=== PATIENT | male | born 1980 | race Caucasian/White ===

== ENCOUNTER → 2017-01-14 | Outpatient (CLI) | payer BC ==
--- NOTE | 2017-01-15 08:36 | CT ---
EXAMINATION TYPE: CT abdomen pelvis wo/w con DATE OF EXAM: 01/14/2017 6:02 PM COMPARISON: Prior CT abdomen pelvis 2015 HISTORY: F/U after radiation for testicular CA. CT DLP: 2219 mGycm Automated exposure control for dose reduction was used. TECHNIQUE: Helical acquisition of images was performed from the lung bases through the pelvis. CONTRAST: Performed with Oral Contrast and without and with IV Contrast, patient injected with 100 mL of Omnipa que 300. FINDINGS: LUNG BASES: No significant abnormality is appreciated. LIVER/GB: The liver shows low attenuation possibly due to fatty infiltration, the gallbladder is unre markable. PANCREAS: No significant abnormality is seen. SPLEEN: No significant abnormality is seen. ADRENALS: No significant abnormality is seen. KIDNEYS: Punctate nonobstructive calculus is present in the anterior calyx of the mid pole the right kidney, there is no hydronephrosis bilaterally, no ureteral calculus RETROPERITONEAL ADENOPATHY: Previous identified retroperitoneal node on the left. Aortic bifurcation adjacent to the aorta is no longer seen. REPRODUCTIVE ORGANS: Prostate shows some associated calcifications. URINARY BLADDER: No significant abnormality is seen. PELVIC ADENOPATHY: None visualized. OSSEOUS STRUCTURES: No significant abnormality is seen. BOWEL: No significant abnormality is seen. OTHER: Aorta shows normal caliber. IMPRESSION: RETROPERITONEAL NODE TO THE LEFT OF MIDLINE NEAR THE LEVEL OF THE AORTIC BIFURCATION ON THE LEFT IS N O LONGER EVIDENT. NO OTHER SIGNIFICANT INTERVAL CHANGE.
== END | disposition home or self-care (01) ==
LOC: RADCTMAIN 17:35
PROVIDERS: ATTEND Radiology Diagnostic Radiology
DX: Z85.47 Personal history of malignant neoplasm of testis (principal)
CPT/HCPCS: 74178; Q9967

== ENCOUNTER → 2017-03-10 | Outpatient (CLI) | payer BC ==
--- NOTE | 2017-03-10 18:34 | XR ---
History pain. Comparison none. Technique 3 views. FINDINGS: There is mild spurring at the third MP joint. The metacarpals are intact. There is no subluxation. Th ere are no erosions. CONCLUSION: No fracture. No sign of inflammatory arthritis. 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
== END | disposition home or self-care (01) ==
LOC: RADXRMAIN 17:45
PROVIDERS: ATTEND Family Medicine
DX: M19.041 Primary osteoarthritis, right hand (principal)

== ENCOUNTER → 2017-08-01 | Outpatient (CLI) | payer BC ==
--- NOTE | 2017-08-01 10:34 | CT ---
EXAMINATION TYPE: CT abdomen pelvis wo/w con DATE OF EXAM: 08/01/2017 COMPARISON: 01/14/2017, 03/25/2016 HISTORY: 37-year-old male Follow up to testicular CA, history of left testicle removed TECHNIQUE: Contiguous axial scanning of the abdomen and pelvis before and after administration of 100 ml Omnipaque 300 IV contrast. Delayed images through the kidneys and coronal/sagittal reconstructio ns performed. CT DLP: 1307 mGycm Automated exposure control for dose reduction was used. FINDINGS: The heart is normal size without pericardial effusion. Mild strandy dependent atelectasis posterior l komal bases. No pleural effusion. A couple subcentimeter hypodensities in the central liver, axial image 17 and 18 are unchanged, likel y cysts. Portal venous system is patent. No biliary ductal dilatation. Adrenal glands, gallbladder, spleen, and pancreas appear within normal limits. 3 mm nonobstructive right renal calculus redemonstrated. A couple subcentimeter hypodensities in the left kidney are unchanged and too small for accurate CT characterization, likely cysts. Scattered nonenlarged mesenteric lymph nodes are unchanged.. Small left common iliac chain lymph node s are unchanged. The previously seen left para-aortic lymphadenopathy seen on 03/25/2016 at the level o f the aortic bifurcation remains resolved. Normal appendix. No significant stool burden. Oral contrast progressed to the distal sigmoid. No mason colonic inflammatory change. Bladder is urine distended. Prostate gland measures 4.7 cm wide with some central gas calcifications. No abnormal fluid collection in the pelvis and no pelvic lymphadenopathy. Bones: No osseous destructive process. Stable bone islands within the right ischium. IMPRESSION: 1. NO NEW OR RECURRENT LYMPHADENOPATHY TO SUGGEST METASTATIC DISEASE. 2. NONOBSTRUCTIVE 3 MM RIGHT RENAL CALCULUS.
== END | disposition home or self-care (01) ==
LOC: RADCTMAIN 09:19
PROVIDERS: ATTEND Radiology Diagnostic Radiology
DX: C62.90 Malignant neoplasm of unspecified testis, unspecified whether descended or undescended (principal); N20.0 Calculus of kidney
CPT/HCPCS: 74178; Q9967

== ENCOUNTER → 2020-08-09 | Outpatient (CLI) | payer BC ==
--- NOTE | 2020-08-09 15:49 | US ---
EXAMINATION TYPE: US extremity nonvasculr ltd RT DATE OF EXAM: 08/09/2020 COMPARISON: NONE CLINICAL HISTORY: M25.561 Pain in rt knee. Pain behind right knee since spring Anechoic area right popliteal fossa = 2.9 x 0.5 x 1.3cm. No evidence of skin thickening. No subcutane ous edema. There is patent, or Doppler flow of the right popliteal vein and artery. IMPRESSION: 2.9 x 0.5 x 1.3 cm popliteal cyst.
== END | disposition home or self-care (01) ==
LOC: RADUSWWP 12:18
PROVIDERS: ATTEND Family Medicine
DX: M71.21 Synovial cyst of popliteal space [Baker], right knee (principal)

== ENCOUNTER → 2020-09-19 | Outpatient (CLI) | payer BC ==
--- NOTE | 2020-09-19 08:18 | XR ---
EXAMINATION TYPE: XR chest 2V DATE OF EXAM: 09/19/2020 COMPARISON: 03/25/2016 TECHNIQUE: PA and lateral views submitted. HISTORY: Testicular cancer FINDINGS: The lungs are clear and there is no pneumothorax, pleural effusion, or focal pneumonia. No overt fa ilure. No pneumothorax. No pleural effusion. IMPRESSION: 1. No acute process.
--- NOTE | 2020-09-19 10:05 | CT ---
EXAMINATION TYPE: CT abdomen pelvis w con DATE OF EXAM: 09/19/2020 COMPARISON: CT abdomen and pelvis August 01, 2017 and older CTs HISTORY: testicular CA CT DLP: 925.4 mGycm, Automated Exposure Control for Dose Reduction was Utilized. CONTRAST: CT scan of the abdomen and pelvis is performed with oral and with IV Contrast, patient injected with 100 mL of Isovue 300. FINDINGS: LUNG BASES: No significant abnormality is appreciated. LIVER/GB: Liver remains diffusely low dense relative to spleen consistent with diffuse fatty infiltra tion. PANCREAS: No significant abnormality is seen. SPLEEN: No significant abnormality is seen. ADRENALS: No significant abnormality is seen. KIDNEYS: Subcentimeter low dense lesion left kidney posteriorly axial image 29 series 5 too small to further characterize presumed benign. Symmetric cortical medullary uptake and excretion without hydro nephrosis seen bilaterally. Nonobstructing 2-3 mm calculus right kidney midpole level coronal image 6 6 is stable. BOWEL: Oral contrast reaches level of mid transverse colon. No suspicious small or large bowel dilata tion. Normal-appearing appendix from cecum right lower quadrant. Few diverticula in the sigmoid colon . No CT evidence for acute diverticulitis. PROSTATE/SEMINAL VESICLES: Normal sized prostate with central calcifications. Left-sided pelvic phleb oliths. LYMPH NODES: No new greater than 1cm abdominal or pelvic lymph nodes are appreciated. Stable subcent imeter retroperitoneal lymph nodes, for reference tiny aortocaval lymph node image 44 presumed benign . Stable few prominent but subcentimeter lymph nodes throughout the left mesentery. OSSEOUS STRUCTURES: No significant abnormality is seen. OTHER: Left testicle surgically absent. Small superior right scrotal fluid collection or hydrocele. IMPRESSION: No suspicious new mass or adenopathy to suggest neoplastic recurrence.
== END | disposition home or self-care (01) ==
LOC: RADCTMAIN 07:48
PROVIDERS: ATTEND Internal Medicine Hematology & Oncology
DX: C62.90 Malignant neoplasm of unspecified testis, unspecified whether descended or undescended (principal); Z71.3 Dietary counseling and surveillance
CPT/HCPCS: 71046; 74177; Q9967

== ENCOUNTER 2021-02-06 14:10 | Emergency (ER) | payer BC ==
[2021-02-06 14:30] VITALS: BP 117/74; PULSE 73; RESP 20; TEMP 97.7
[2021-02-06] MEDS ORDERED: SODIUM CHLORIDE 0.9% 1,000 ML IV STA (14:41)
[2021-02-06] MEDS ORDERED: KETOROLAC 15 MG/ML 1 ML VIAL IVP STA (14:41)
[2021-02-06] MEDS ORDERED: ONDANSETRON 4 MG/2 ML VIAL IVP STA (14:41)
[2021-02-06] MEDS ORDERED: HYDROmorphone 0.5 MG/0.5 ML SYRINGE IVP STA (14:41)
[2021-02-06 15:27] LABS: Basophils % (A) 0 %; Eosinophils # (A) 0.2 k/uL (0-0.7); Eosinophils % (A) 2 %; HCT 47.3 % (39.0-53.0); HGB 16.2 gm/dL (13.0-17.5); Lymphocytes # (A) 1.1 k/uL (1.0-4.8); Lymphocytes % (A) 13 %; MCH 29.7 pg (25.0-35.0); MCHC 34.2 g/dL (31.0-37.0); MCV 86.7 fL (80.0-100.0); Mean Platelet Volume 7.8; Monocytes # (A) 0.4 k/uL (0-1.0); Monocytes % (A) 4 %; Neutrophils % (A) 79 %; Platelet Count 202 k/uL (150-450); RBC 5.45 m/uL (4.30-5.90); RDW 13.3 % (11.5-15.5); WBC 8.8 k/uL (3.8-10.6)
--- NOTE | 2021-02-06 15:38 | CT ---
EXAMINATION TYPE: CT abdomen pelvis wo con DATE OF EXAM: 02/06/2021 HISTORY: right flank pain, history of testicular cancer CT DLP: 574 mGycm. Automated Exposure Control for Dose Reduction was Utilized. TECHNIQUE: CT scan of the abdomen and pelvis is performed without oral or IV contrast. COMPARISON: CT abdomen and pelvis September 19, 2020 FINDINGS: Within the limitations of a non-contrast study, the following observations are made. LUNG BASES: No significant abnormality is appreciated. LIVER/GB: No significant abnormality is appreciated. PANCREAS: No significant abnormality is seen. SPLEEN: No significant abnormality is seen. ADRENALS: No significant abnormality is seen. KIDNEYS: No hydronephrosis or obstructing ureter calculus is seen bilaterally. Possible 1 mm punctate calcification laterally left kidney coronal image 70 midpole level. There is however a dependent 3 m m stone in the bladder axial image 121 on current study. BOWEL: Normal appearing appendix from cecum right lower quadrant. Few scattered colonic diverticula. No CT evidence for acute diverticulitis. GENITAL ORGANS: Normal size prostate. Inferior calcifications. Scattered bilateral pelvic phleboliths . LYMPH NODES: No greater than 1cm abdominal or pelvic lymph nodes are appreciated. OSSEOUS STRUCTURES: No significant abnormality is seen. OTHER: No significant additional abnormality is seen. IMPRESSION: There is new 3 mm dependent calculus in bladder. Patient may have recently passed this fr om ureter.
[2021-02-06 15:49] LABS: ALT 31 U/L (4-49); AST 30 U/L (17-59); African American GFR (CKD) >90 (>60 ml/min/1.73 sqM); Albumin 4.5 g/dL (3.5-5.0); Alkaline Phosphatase 83 U/L (38-126); Anion Gap 10 mmol/L; Blood Urea Nitrogen 10 mg/dL (9-20); Calcium 9.9 mg/dL (8.4-10.2); Carbon Dioxide 25 mmol/L (22-30); Chloride 103 mmol/L (98-107); Glucose 136 mg/dL (74-99); Lipase 249 U/L (23-300); Non-African American GFR(CKD) >90 (>60 ml/min/1.73 sqM); Potassium 3.7 mmol/L (3.5-5.1); Sodium 138 mmol/L (137-145); Total Bilirubin 0.8 mg/dL (0.2-1.3)
[2021-02-06 16:08] LABS: Appearance,Urine Clear (Clear); Bilirubin,Urine Negative (Negative); Blood,Urine Trace (Negative); Color,Urine Yellow; Glucose,Urine (UA) Negative (Negative); Ketones,Urine Negative (Negative); Leukocyte Esterase,Urine Negative (Negative); Mucus,Urine Rare /hpf; Nitrite,Urine Negative (Negative); PH, Urine 7.5 (5.0-8.0); Protein,Urine Negative (Negative); RBC,Urine 10 /hpf (0-5); Specific Gravity,Urine 1.014 (1.001-1.035); Sperm,Urine Rare /hpf; Urobilinogen,Urine <2.0 mg/dL (<2.0); WBC,Urine 1 /hpf (0-5)
--- NOTE | 2021-02-06 16:16 | ED ---
Abdominal Pain HPI - General Chief Complaint: Abdominal Pain Stated Complaint: back pain/arm tingling Time Seen by Provider: 02/06/21 14:35 Source: patient Mode of arrival: ambulatory Limitations: no limitations - History of Present Illness Initial Comments: 40-year-old male patient presents to the emergency department today for evaluation of right flank pain. Patient states this started approximately an hour prior to arrival. States the pain is sharp and stabbing. Has been constant since onset. States he did become nauseated but denies any vomiting. States the pain worsens when he takes a deep breath. States he is having some tingling in the bilateral hands. States he has had normal bowel movements. Denies any hematuria, dysuria, urinary frequency, urinary urgency. Denies history of kidney stones. Denies any history of abdominal surgery. Denies fever or chills. Patient denies any recent rash, cough, shortness of breath, chest pain, back pain, numbness, tingling, dizziness, weakness, hematuria, dysuria, urinary urgency, urinary frequency, headache, visual changes, or any other complaints. - Related Data Home Medications Medication Instructions Recorded Confirmed Cetirizine HCl [Zyrtec] 10 mg PO DAILY 02/06/21 02/06/21 Fluticasone Nasal [place] [Flonase 1 spray EA NOSTRIL DAILY 02/06/21 02/06/21 Nasal Excel] Ibuprofen [Motrin Ib] 600 mg PO Q8H PRN 02/06/21 02/06/21 Omeprazole Magnesium [PriLOSEC OTC] 20 mg PO DAILY PRN 02/06/21 02/06/21 Allergies Allergy/AdvReac Type Severity Reaction Status Date / Time No Known Allergies Allergy Verified 02/06/21 15:17 Review of Systems ROS Statement: Those systems with pertinent positive or pertinent negative responses have been documented in the HPI. ROS Other: All systems not noted in ROS Statement are negative. Past Medical History Past Medical History: Cancer Additional Past Medical History / Comment(s): testicle History of Any Multi-Drug Resistant Organisms: None Reported Additional Past Surgical History / Comment(s): testicle removed with radiation Past Psychological History: No Psychological Hx Reported Smoking Status: Never smoker Past Alcohol Use History: Daily Past Drug Use History: None Reported General Exam Limitations: no limitations General appearance: alert, in no apparent distress, other (Physical well- developed, well-nourished adult male patient in no acute distress. Vital signs upon presentation are temperature 97.7F, pulse 73, respirations 20, blood pressure 117/74, pulse ox 99% on room air.) Eye exam: Present: normal appearance, PERRL, EOMI. Absent: scleral icterus, conjunctival injection, periorbital swelling ENT exam: Present: normal exam, normal oropharynx, mucous membranes moist Respiratory exam: Present: normal lung sounds bilaterally. Absent: respiratory distress, wheezes, rales, rhonchi, stridor Cardiovascular Exam: Present: regular rate, normal rhythm, normal heart sounds. Absent: systolic murmur, diastolic murmur, rubs, gallop, clicks GI/Abdominal exam: Present: soft, normal bowel sounds. Absent: distended, tenderness, guarding, rebound, rigid Neurological exam: Present: alert, oriented X3, CN II-XII intact Psychiatric exam: Present: normal affect, normal mood Skin exam: Present: warm, dry, intact, normal color. Absent: rash Course Vital Signs 02/06/21 14:28 Temperature 97.7 F Pulse Rate 73 Respiratory 20 Rate Blood Pressure 117/74 O2 Sat by Pulse 99 Oximetry Medical Decision Making - Medical Decision Making 40-year-old male patient presented to the emergency department today for evaluation of right flank pain. Physical examination reveals soft nontender abdomen. No CVA tenderness. Labs reviewed and were unremarkable. Urinalysis did show trace blood. He did have a CT of the pelvis without contrast. CT did show a 3 mm stone in the dependent bladder which could've recently been past when the ureter. Upon reevaluation patient states that he is now pain-free. States he did pass a small black stone when urinating after the CT was performed. Did discuss kidney stones. He is instructed to increase fluids. He'll be discharged follow-up with the primary care physician for recheck in 1-2 days. Return parameters were discussed in detail. He verbalizes understanding and agrees with this plan. My attending is Dr. Hussein. - Lab Data Result diagrams: 02/06/21 15:00 02/06/21 14:41 Lab Results 02/06/21 02/06/21 02/06/21 Range/Units 14:41 15:00 15:57 WBC 8.8 (3.8-10.6) k/uL RBC 5.45 (4.30-5.90) m/uL Hgb 16.2 (13.0-17.5) gm/dL Hct 47.3 (39.0-53.0) % MCV 86.7 (80.0-100.0) fL MCH 29.7 (25.0-35.0) pg MCHC 34.2 (31.0-37.0) g/dL RDW 13.3 (11.5-15.5) % Plt Count 202 (150-450) k/uL MPV 7.8 Neutrophils % 79 % Lymphocytes % 13 % Monocytes % 4 % Eosinophils % 2 % Basophils % 0 % Neutrophils # 7.0 (1.3-7.7) k/uL Lymphocytes # 1.1 (1.0-4.8) k/uL Monocytes # 0.4 (0-1.0) k/uL Eosinophils # 0.2 (0-0.7) k/uL Basophils # 0.0 (0-0.2) k/uL Sodium 138 (137-145) mmol/L Potassium 3.7 (3.5-5.1) mmol/L Chloride 103 (98-107) mmol/L Carbon Dioxide 25 (22-30) mmol/L Anion Gap 10 mmol/L BUN 10 (9-20) mg/dL Creatinine 0.91 (0.66-1.25) mg/dL Est GFR (CKD-EPI)AfAm >90 (>60 ml/min/1.73 sqM) Est GFR (CKD-EPI)NonAf >90 (>60 ml/min/1.73 sqM) Glucose 136 H (74-99) mg/dL Calcium 9.9 (8.4-10.2) mg/dL Total Bilirubin 0.8 (0.2-1.3) mg/dL AST 30 (17-59) U/L ALT 31 (4-49) U/L Alkaline Phosphatase 83 (38-126) U/L Total Protein 7.0 (6.3-8.2) g/dL Albumin 4.5 (3.5-5.0) g/dL Lipase 249 (23-300) U/L Urine Color Yellow Urine Appearance Clear (Clear) Urine pH 7.5 (5.0-8.0) Ur Specific [place] 1.014 (1.001-1.035) Urine Protein Negative (Negative) Urine Glucose (UA) Negative (Negative) Urine Ketones Negative (Negative) Urine Blood Trace H (Negative) Urine Nitrite Negative (Negative) Urine Bilirubin Negative (Negative) Urine Urobilinogen <2.0 (<2.0) mg/dL Ur Leukocyte Esterase Negative (Negative) Urine RBC 10 H (0-5) /hpf Urine WBC 1 (0-5) /hpf Urine Mucus Rare H (None) /hpf Urine Sperm Rare (None) /hpf - Radiology Data Radiology results: report reviewed, image reviewed CT abdomen and pelvis without contrast shows a new 3mm dependent calculus in the bladder. Patient may have recently passed this from ureter. Disposition Clinical Impression: Kidney stone on right side, Right flank pain Disposition: HOME SELF-CARE Condition: Good Instructions (If sedation given, give patient instructions): Kidney Stones (ED), Flank Pain (ED) Additional Instructions: Increase fluids. Follow-up the primary care physician for recheck in 1-2 days. Return to the emergency department for any new, worsening, or concerning symptoms. Is patient prescribed a controlled substance at d/c from ED?: No Referrals: Carla Moreno III, MD [Primary Care Provider] - 1-2 days Time of Disposition: 16:16
== END 2021-02-06 16:54 | disposition home or self-care (01) ==
LOC: EC 14:10
DX: N20.0 Calculus of kidney (principal); R20.2 Paresthesia of skin
CPT/HCPCS: 36415; 80053; 83690; 85025; 81001; 74176; 99284; 96374; 96375 ×2; 96361; J2405; J1885; J1170

== ENCOUNTER → 2021-09-21 | Outpatient (CLI) | payer BC ==
--- NOTE | 2021-09-21 17:59 | CT ---
EXAMINATION TYPE: CT abdomen pelvis w con DATE OF EXAM: 09/21/2021 COMPARISON: 02/06/2021 HISTORY: Hx testicular ca. F/u, reporting no issues CT DLP: 797.10 mGycm CONTRAST: CT scan of the abdomen and pelvis is performed with Oral Contrast and with IV Contrast, patient injec spencer with 100 mL of Isovue 300. FINDINGS: LUNG BASES-: No visible nodule. No infiltrate. LIVER/GB: No calcified gallstones. No space occupying hepatic lesion. Biliary tree is of normal ca liber. PANCREAS: No inflammation. No distinct mass. SPLEEN: No splenic enlargement. No lesion seen. ADRENALS: No nodule. No thickening. KIDNEYS/BLADDER: No hydronephrosis. No nephrolithiasis. No distinct renal mass. Urinary bladder g rossly unremarkable. BOWEL: Normal appendix. Normal bowel caliber. No inflammation. GENITAL ORGANS: Prostate calcifications noted. LYMPH NODES: No greater than 1cm abdominal or pelvic lymph nodes are appreciated. AORTA: No significant abnormality. OSSEOUS STRUCTURES: No significant abnormality is seen. OTHER: No significant additional abnormality is seen. IMPRESSION: 1. No evidence for metastatic disease.
== END | disposition home or self-care (01) ==
LOC: RADCTMAIN 14:19
PROVIDERS: ATTEND Internal Medicine Hematology & Oncology
DX: Z03.89 Encounter for observation for other suspected diseases and conditions ruled out (principal); C62.90 Malignant neoplasm of unspecified testis, unspecified whether descended or undescended
CPT/HCPCS: 74177; Q9967

== ENCOUNTER → 2023-01-03 | Outpatient (CLI) | payer BC ==
--- NOTE | 2023-01-03 14:46 | CT ---
EXAMINATION TYPE: CT ChestAbdPelvis w con DATE OF EXAM: 01/03/2023 COMPARISON: CT abdomen pelvis dated 09/21/2021 HISTORY: follow up for testicular ca CT DLP: 1024.2 mGycm Automated exposure control for dose reduction was used. CONTRAST: CT scan of the chest, abdomen and pelvis is performed with Oral Contrast and with IV Contrast, patien t injected with 70 mL of Isovue 300. FINDINGS: CT chest: The lungs are clear of consolidative or interstitial density. There are no suspicious lung masses or nodules There is no pleural effusion or pneumothorax. The great vessels the chest are normal no mediastinal, hilar or axillary adenopathy. There is a 14 -15 mm hypodense nodule in the left lobe of the thyroid gland. Thyroid ultrasound is re commended for further evaluation. The osseous structures of thorax are intact. CT abdomen and pelvis: There is a stable small 10 mm hepatic cyst left lobe liver there are no suspicious masses or organome erika involving the solid visceral organs of the upper abdomen. Kidneys excrete contrast promptly and symmetrically and no solid renal mass or hydronephrosis. There is no retroperitoneal adenopathy or hemorrhage in the caliber the abdominal aorta is normal. Bowel loops are normal in caliber is no evidence of dilatation or obstruction. No inflammatory change s are identified in the bowel wall or mesentery. There is no free intraperitoneal air or fluid. The gallbladder is normal without gallstones, wall thickening or pericholecystic fluid. No focal osseous abnormalities are seen. The soft tissues abdominal wall are intact. IMPRESSION: 1. No evidence of metastatic disease and no significant interval change since prior study. 2. 14 -15 mm hypodense nodule in the left lobe of the thyroid gland and ultrasound-guided thyroid gla nd is recommended for further evaluation.
== END | disposition home or self-care (01) ==
LOC: RADCTMAIN 11:37
PROVIDERS: ATTEND Internal Medicine Hematology & Oncology
DX: C62.90 Malignant neoplasm of unspecified testis, unspecified whether descended or undescended (principal); E04.1 Nontoxic single thyroid nodule
CPT/HCPCS: 71260; 74177; Q9967